=== PATIENT | male | born 1995 | race Caucasian/White ===

== ENCOUNTER 2021-02-01 20:03 | Emergency (ER) | payer OTHER, SELFPAY ==
[2021-02-01 20:04] VITALS: BP 132/88; PULSE 66; RESP 18; TEMP 36.8; O2SAT 100; BMI 26.6
--- NOTE | 2021-02-01 20:15 | EKG12_ITS ---
Test Reason : GENERAL ILLNESS Blood Pressure : / mmHG Vent. Rate : 064 BPM Atrial Rate : 064 BPM P-R Int : 164 ms QRS Dur : 092 ms QT Int : 414 ms P-R-T Axes : 031 020 023 degrees QTc Int : 427 ms Sinus rhythm with marked sinus arrhythmia Otherwise normal ECG Confirmed by CORRY TAMAYO, DEA ([id number]), editor house organ MIRIAM LAMB ([id number]) on 02/05/2021 9:36:07 AM Referred By: EDER Confirmed By:DEA WHEATLEY MD
--- NOTE | 2021-02-01 20:16 | ED.DCSUM_ITS ---
History of Present Illness Chief Complaint: General Illness Informant: Patient Onset: Today Current Severity: Mild Maximum Severity: Moderate Narrative: Patient presents after having an episode where he became very sweaty and lightheaded. Patient states he was moving furniture and began to get lightheaded. He tried to go outside to cool off but states he was stumbling and fell to his side. He became weak and short of breath. Father states when he was on the phone with his son approximate 45 months prior to arrival he is complaining about tingling in his legs and right arm. Patient states symptoms are now improving but is not quite back to baseline. Past Medical History - Allergies and Home Meds Allergies/Adverse Reactions: Allergies No Known Allergies Allergy (Verified 02/01/21 20:06) Primary Care Physician: NOT,DEFINED [NON-STAFF] - Past Medical History: None Smoking Status: Never smoker Review of Systems General: Denies: Chills, Fever Eyes: Denies: Visual changes - bilaterally ENT: Denies: Bilateral ear pain Cardiovascular: Denies: Chest pain, Palpitations Respiratory: Reports: Dyspnea Gastrointestinal: Denies: Abdominal pain, Nausea, Vomiting, Diarrhea Genitourinary: Denies: Dysuria Musculoskeletal: Denies: Swelling, Extremity Pain Skin: Denies: Rash Neurological: Reports: Parasthesia. Denies: Headache Hematologic: Denies: Easy bruising, Easy bleeding Allergy: Denies: Uticaria Physical Exam Vital Signs/Narrative: Vital Signs Temp Pulse Resp BP Pulse Ox 02/01/21 20:04 98.2 F 66 18 132/88 H 100 Inital Vital Signs reviewed: Yes General: Well nourished, Well developed Head: Normocephalic ENT: Moist mucous membranes Neck: Supple Cardiovascular: Regular rate, Regular rhythm Respiratory: No distress, CTA bilaterally Abdomen: Soft, Nontender Extremities: Nontender Skin: Normal color, No rash Neurological: Alert, Oriented x3, Normal Strength, Normal Sensation Psychological: Normal affect Diagnostic/Tx/Re-eval Chest X-Ray - ED: 1 View, Read by ED Physician, Normal, Heart, Lungs, Mediastinum 02/01/21 21:00 Chest 1 View (Portable) [RAD] Stat Laboratory Results 02/01/21 02/01/21 20:35 20:35 WBC 11.3 H RBC 5.28 Hgb 16.0 Hct 45.6 MCV 86.4 MCH 30.3 MCHC 35.1 RDW Std Deviation 38.8 RDW Coeff of Karlene 12.3 Plt Count 286 MPV 10.0 Immature Gran % (Auto) 0.300 Neut % (Auto) 78.2 H Lymph % (Auto) 15.9 L Catron % (Auto) 4.5 Eos % (Auto) 0.8 Baso % (Auto) 0.3 Absolute Neuts (auto) 8.9 H Absolute Lymphs (auto) 1.80 Nucleated RBC % 0 Sodium 136 Potassium 3.4 L Chloride 102 Carbon Dioxide 25.0 Anion Gap 9 BUN 16 Creatinine 1.26 Estim Creat Clear Calc 88.84 Est GFR (MDRD) Af Amer 89 Est GFR (MDRD) Non-Af 73 BUN/Creatinine Ratio 12.7 Glucose 92 Calcium 8.9 Troponin I < 0.015 - EKG Initial EKG Interpretation: Sinus Rhythm - Sinus at 64 with no acute ischemia. - Medical Decision Making Patient was given IV fluids. Blood work is unremarkable other than a slightly low potassium. Oral replacement was provided. Portable chest x-ray per my interpretation is unremarkable. EKG normal. At this time patient does feel improved. He will be discharged home with his father. ED Disposition - Plan for ED Patient: Disposition: Home or Assisted Living Diagnosis: Near syncope Instructions: ED Near-Fainting- Vagal Reaction Referrals: Niko Mena MD [STAFF PHYSICIAN] - As Needed
[2021-02-01] MEDS: 0.9% Normal Saline 1,000 ML 1000 ML IV (20:34)
[2021-02-01 20:40] LABS: Absolute Neutrophil Count 8.9 X10^3/uL (2.0-7.7); Basophil# 0.03 X10^3/uL; Basophil% 0.3 % (0-1); Eosinophil# 0.09 X10^3/uL; Eosinophils% 0.8 % (0-5); Hematocrit 45.6 % (40-54); Lymphocyte % 15.9 % (19-41); Mean Corp Hgb Conc 35.1 g/dL (32-36); Mean Corpuscular Hgb 30.3 pg (27.0-32.0); Mean Corpuscular Volume 86.4 fL (80-94); Monocyte# 0.51 X10^3/uL; Monocyte% 4.5 % (0-10); NRBC Flagged by Analyzer 0 % (0-5); Neutrophil # 8.85 X10^3/uL (2.7-7.7); Neutrophil % 78.2 % (47-70); Platelet Count 286 K/mm3 (150-450); RBC Distribution Width CV 12.3 % (11.6-14.6); RBC Distribution Width SD 38.8 fl (35.1-43.9); Red Blood Count 5.28 M/mm3 (4.6-6.2); White Blood Count 11.3 K/mm3 (4.4-11.0)
--- NOTE | 2021-02-01 21:00 | RAD_ITS ---
INDICATION: sob EXAMINATION/TECHNIQUE: X-RAY - XR Chest 1 View COMPARISON: None. FINDINGS: The lungs are clear. The cardiomediastinal silhouette is unremarkable. No pleural effusion or pneumothorax. The osseous structures are unremarkable. RAD/Chest 1 View (Portable) IMPRESSION: No acute radiographic abnormalities. Electronically Signed: Remi Pfeiffer MD at 21:43 EST Tel , Service support ,
[2021-02-01 21:22] LABS: Anion Gap 9 (5-15); BUN 16 mg/dL (7-18); BUN/Creat Ratio 12.7 RATIO (10-20); Calcium,Total 8.9 mg/dL (8.5-10.1); Chloride 102 mmol/L (98-107); Creatinine, Serum 1.26 mg/dL (0.70-1.30); EST Glomerular Filtration Rate 73 mL/min (>60); Est Glom Filt Rate - Afr Amer 89 mL/min (>60); Estimated Creatinine Clearance 88.84 ml/min; Glucose 92 mg/dL (74-106); Potassium 3.4 mmol/L (3.5-5.1); Sodium Level 136 mmol/L (136-145)
[2021-02-01 22:11] VITALS: BP 121/81; PULSE 69; RESP 20; O2SAT 100
[2021-02-01] MEDS: Potassium Chloride Oral Tablet 20 MEQ 40 MEQ PO (22:22)
[2021-02-01 22:57] VITALS: PULSE 76; RESP 14; O2SAT 99
== END 2021-02-01 22:58 | disposition home or self-care (01) ==
PROVIDERS: Emergency Provider Emergency Medicine
DX: R55 Syncope and collapse (principal)
CPT/HCPCS: 71045; 80048; 84484; 85025; 93005; 99285; J7030; A4216

== ENCOUNTER 2022-10-11 01:37 | Emergency (ER) | payer BC, SELFPAY ==
[2022-10-11 01:38] VITALS: BP 128/79; PULSE 67; RESP 18; TEMP 35.8; O2SAT 100; BMI 29.2
[2022-10-11 01:44] VITALS: TEMP 35.8; O2SAT 100
[2022-10-11] MEDS: oxyCODONE 5 MG Tablet 10 MG PO (02:01)
--- NOTE | 2022-10-11 02:26 | RAD_ITS ---
INDICATION: pain EXAMINATION/TECHNIQUE: X-RAY - XR Ribs Unilateral W/ PA Chest Min 3 Views COMPARISON: February 01, 2021 chest radiograph. FINDINGS: SOFT TISSUES: No soft tissue swelling or gas. BONES: Nondisplaced left anterolateral sixth rib fracture.. No displaced fracture. No aggressive osseous lesion. Mild S-shaped curvature of the thoracic spine. VISUALIZED LUNGS: Clear. No pneumothorax. RAD/Ribs Uni Min 3V w/PA Chest IMPRESSION: Nondisplaced left anterolateral sixth rib fracture. Electronically Signed: Genaro Harris MD at 3:32 EST ,
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
[2022-10-11 04:17] VITALS: BP 142/60; PULSE 81; RESP 16; O2SAT 96
== END 2022-10-11 04:18 | disposition home or self-care (01) ==
PROVIDERS: Emergency Provider Emergency Medicine; Visit Provider Emergency Medicine
DX: S22.32XA Fracture of one rib, left side, initial encounter for closed fracture (principal); V89.0XXA Person injured in unspecified motor-vehicle accident, nontraffic, initial encounter
CPT/HCPCS: 71101; 99283

== ENCOUNTER 2025-08-29 19:53 | Emergency (ER) | payer OTHER, SELFPAY ==
[2025-08-29 19:55] VITALS: BP 127/78; PULSE 71; RESP 15; TEMP 36.6; O2SAT 100
[2025-08-29 20:36] VITALS: BMI 31.3
--- NOTE | 2025-08-29 20:37 | RAD_ITS ---
PROCEDURE: RIGHT ANKLE MIN 3 VIEWS; RIGHT TIBIA AND FIBULA 2 VIEWS 08/29/2025 REASON FOR EXAM: PAIN, FOOT; PAIN INJURY TECHNIQUE: Procedure Code: RADWOO; EMMA Modality: DX Procedure: ANKLE MIN 3 VIEWS; TIBIA FIBULA 2 VIEWS Laterality: Right COMPARISON: None. FINDINGS: Acute highly comminuted and displaced fractures of the distal tibial and fibular shafts, which appears to have intra-articular extension of the distal tibia plafond and nondisplaced fracture involving the medial malleolus. No disruption of the ankle mortise. Prominent generalized soft tissue swelling about the ankle. RAD/Ankle min 3 Views IMPRESSION: Acute displaced highly comminuted fractures of the distal tibial and fibular sh afts, with intra-articular extension of the distal tibia and involvement of the medial malleolus. Reading Location: [id number]
--- NOTE | 2025-08-29 20:37 | RAD_ITS ---
PROCEDURE: RIGHT FOOT MIN 3 VIEWS 08/29/2025 REASON FOR EXAM: PAIN TECHNIQUE: Procedure Code: RADFO Modality: DX Procedure: FOOT MIN 3 VIEWS Laterality: Right COMPARISON: None. FINDINGS: Comminuted fractures of the distal tibia and fibula. No additional acute fracture or dislocation appreciated within the right foot. Alignment appears anatomic. Soft tissue swelling about the ankle. RAD/Foot min 3 Views IMPRESSION: Comminuted displaced fractures of the distal tibia and fibula. Reading Location: [id number]
--- NOTE | 2025-08-29 20:37 | RAD_ITS ---
PROCEDURE: RIGHT ANKLE MIN 3 VIEWS; RIGHT TIBIA AND FIBULA 2 VIEWS 08/29/2025 REASON FOR EXAM: PAIN, FOOT; PAIN INJURY TECHNIQUE: Procedure Code: RADANK; RADFRED Modality: DX Procedure: ANKLE MIN 3 VIEWS; TIBIA FIBULA 2 VIEWS Laterality: Right COMPARISON: None. FINDINGS: Acute highly comminuted and displaced fractures of the distal tibial and fibular shafts, which appears to have intra-articular extension of the distal tibia plafond and nondisplaced fracture involving the medial malleolus. No disruption of the ankle mortise. Prominent generalized soft tissue swelling about the ankle. RAD/Tibia & Fibula 2 Views IMPRESSION: Acute displaced highly comminuted fractures of the distal tibial and fibular sh afts, with intra-articular extension of the distal tibia and involvement of the medial malleolus. Reading Location: [id number]
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
[2025-08-29] MEDS: fentaNYL 100 MCG/2 ML Ampul 50 MCG IV (20:43)
[2025-08-29 22:00] VITALS: BP 120/80; PULSE 71; RESP 18; O2SAT 98
[2025-08-29 22:47] VITALS: BP 145/67; PULSE 67; RESP 18; TEMP 36.6; O2SAT 100
== END 2025-08-29 23:06 | disposition home or self-care (01) ==
PROVIDERS: Emergency Provider Student in an Organized Health Care Education/Training Program; PCP Family Medicine; Visit Provider Student in an Organized Health Care Education/Training Program
DX: S82.451A Displaced comminuted fracture of shaft of right fibula, initial encounter for closed fracture (principal); S82.251A Displaced comminuted fracture of shaft of right tibia, initial encounter for closed fracture; V86.55XA Driver of 3- or 4- wheeled all-terrain vehicle (ATV) injured in nontraffic accident, initial encounter
CPT/HCPCS: 29515; 73590; 73610; 73630; 96374; 96375; 96376; 99282; A4216

== ENCOUNTER 2025-08-31 10:14 | Day surgery (SDC) | payer OTHER, SELFPAY ==
[2025-08-31] VITALS (9 sets, daily range): BP systolic 92–121; BP diastolic 46–77; PULSE 60–89; RESP 12–18; TEMP 36.2–36.6; O2SAT 99–100; BMI 31.0
[2025-08-31] MEDS: Lactated Ringers 1,000 ML 15 ML IV ×2 (11:10→14:03)
--- NOTE | 2025-08-31 11:30 | RAD_ITS ---
PROCEDURE: ANKLE 2 VIEWS 08/31/2025 REASON FOR EXAM: ANKLE PILON FRACTURE, MULTIPLANE EXTERNAL FIXATION SYSTEM TECHNIQUE: Procedure Code: RADANK2 Modality: DX Procedure: ANKLE 2 VIEWS Laterality: Not indicated on the provided images COMPARISON: Radiographs dated 08/29/2025 and 08/31/25.. FINDINGS: Total fluoroscopic images: 7 Total fluoroscopy time: 25.4 seconds Total exposure: 1.48 mGy Orthopedic hardware compatible with an external fixator is noted within the proximal tibia and calcaneal tuberosity. Once again noted are moderately displaced spiral fractures through the distal shafts of the tibia and fibula, as well as nondisplaced medial and posterior malleolar fractures. RAD/Ankle 2 Views IMPRESSION: As above. Reading Location: [id number]
--- NOTE | 2025-08-31 11:37 | PCM.PRE.AN2 ---
ASA Classification* ASA Classification ASA Classification: 2 Assessment & Plan Anesthesia* Anesthesia Assessment Anesthesia Assessment: Discussed sedation and/or anesthesia options, risks, benefits, and alternatives with patient/parents/legal guardian/POA. Questions invited. The patient/parents/legal guardian/POA seems to understand and agrees to proceed with anesthesia plan. Reviewed the physical assessment, medical history, allergy history and patient home medications list prior to surgery/procedure/anesthetic and documented any changes. Performed airway and anesthesia risk assessments. Anesthesia Type Anesthesia Type: General and Block (Patient is consented for preop pain block.) History Source History Obtained from:: Patient and Chart Anesthesia Focused Assessment* Temperature: 98 F Pulse Rate: 86 Blood Pressure: 121/77 Respiratory Rate: 16 Pulse Ox: 100 Oxygen Delivery Method: Room Air Airway Assessment Mouth opens: >3 cm Mallampati Score: IV Teeth Condition: Intact Neck Range of motion (ROM): Limited ROM (Slight Decrease) Labs Anesthesia Preop lab: CBC WBC, (4.4-11.0) 11.3 K/mm3 H 02/01/21, 20:35 RBC, (4.6-6.2) 5.28 M/mm3 02/01/21, 20:35 Hgb, (13.0-16.5) 16.0 g/dL 02/01/21, 20:35 Hct, (40-54) 45.6 % 02/01/21, 20:35 Plt Count, (150-450) 286 K/mm3 02/01/21, 20:35 CHEMISTRY Potassium, (3.5-5.1) 3.4 mmol/L L 02/01/21, 20:35 Sodium, (136-145) 136 mmol/L 02/01/21, 20:35 BUN, (7-18) 16 mg/dL 02/01/21, 20:35 Creatinine, (0.70-1.30) 1.26 mg/dL 02/01/21, 20:35 Glucose, (74-106) 92 mg/dL 02/01/21, 20:35 COAG Pre-Assessment Diagnosis/Proposed Procedure Planned Operative Procedure(s): EXTERNAL FIXATOR Anesthesia History 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 When Was Last Pacemaker Check QUESTION #4 FULL TEXT: You/Your Family Experience fever (hyperthermia) with Anesthesia Last Oral Intake Last Oral intake: Last Oral Intake NPO since 23:45 08/31/25 10:46 Meds taken in AM with sips of Yes 08/31/25 10:46 water? Meds patient instructed to vicodin 08/31/25 10:46 take am of surgery PONV PONV - software development test engineer: PONV - software development test engineer Female No 08/30/25 11:53 HX of Motion Sickness No 08/30/25 11:53 HX of N/V After Surgery No 08/30/25 11:53 Non-Smoker No 08/30/25 11:53 Duration of Surgery greater No 08/30/25 11:53 than 60 minutes Number of Risk Factors PONV Score Height & Weight Height & Weight: Anesthesia: Height & Weight Height 5 ft 8 in 08/31/25 10:46 Weight: 92.533 kg 08/31/25 10:46 Body Mass Index (BMI) 31.0 08/31/25 10:46 Respiratory Assessment Respiratory Assessment - software development test engineer: Respiratory Tract Infection Hx - software development test engineer Hx Respiratory Tract Infection No 08/30/25 11:53 STOP Sleep Apnea STOP Sleep Apnea - software development test engineer: STOP Sleep Apnea - software development test engineer Hx Hypertension No 08/30/25 11:53 Hx Sleep Apnea No 08/30/25 11:53 CPAP BIPAP Do you snore loudly (louder No 08/30/25 11:53 than talking or can be heard Do you often feel tired/ No 08/30/25 11:53 fatigued/ sleepy during daytime? Has anyone observed you stop No 08/30/25 11:53 breathing during sleep? STOP Results Negative 08/30/25 11:53 QUESTION #5 FULL TEXT : Do you snore loudly (louder than talking or can be heard through closed doors)? 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 Specify any problems Hx of Preganancy in last 3 N/A 08/30/25 11:53 Months Nurse Filling Out Transfusion NBUCHER 08/30/25 11:53 & Questions: Date: 08/30/25 08/30/25 11:53 Time: 11:54 08/30/25 11:53 Patient unable to answer at this time (ie. confused, unrespo /Reproduction History /Reproductive History - software development test engineer: /Reproductive Hx- software development test engineer Hx Now No 08/30/25 11:53 Gestational Age (in weeks): EDC: Hx Hx Para Hx Section SAB No 08/30/25 11:53 Active Medications Active Medications: Current Medications Generic Name Dose Route Start Last Admin Trade Name Freq PRN Reason Stop Dose Admin Lactated Ringer's 1,000 mls @ 15 mls/hr 08/31/25 10:30 08/31/25 11:10 IV 15 mls/hr .Q48H VICKIE Administration PFSH Medical History Wears glasses Depression Former smoker No acute medical problems Home Medications ?Medication ?Instructions ?Recorded ?Last Taken ?Type hydrocodone-acetaminophen 5-325mg 1 tab PO Q6H PRN PRN Pain 4 days 08/29/25 08/31/25 06:00 Rx 5mg-325mg #12 TABLETS escitalopram oxalate 20 mg tablet 20 mg PO DAILY 08/30/25 08/30/25 History Allergy/AdvReac Type Severity Reaction Status Date / Time No Known Allergies Allergy Verified 08/31/25 10:45 Surgical History History of vasectomy Social History Smoking Status: Former smoker Review of Systems (Anesthesia) ROS Narrative System reviewed and no additional complaints, except as documented.
[2025-08-31] MEDS: Cefazolin 2 GM in 0.9% Normal Saline (100mL Bag) 100 ML IV (12:17)
[2025-08-31] MEDS: fentaNYL 100 MCG/2 ML Ampul IV (12:30)
[2025-08-31] MEDS: Midazolam 2 MG/2 ML Syringe IV (12:30)
[2025-08-31] MEDS: Cefazolin 1 GM/5 ML Vial 2 GM IV (12:50)
[2025-08-31] MEDS: Lidocaine 1% (5 ml sdv) 5 ML Vial IV (12:50)
--- NOTE | 2025-08-31 13:37 | RAD_ITS ---
PROCEDURE: TIBIA FIBULA 2 VIEWS 08/31/2025 REASON FOR EXAM: FRX TECHNIQUE: Procedure Code: RADTF Modality: DX Procedure: TIBIA FIBULA 2 VIEWS Laterality: COMPARISON: 08/31/2025 right lower fluoroscopic spot images. 08/29/2025 right ankle radiographs. FINDINGS: Comminuted oblique complete fracture through the distal tibial metadiaphysis exhibits mild foreshortening, with as much as 8 mm lateral displacement of the main distal fragment, and with as much as 7 mm anterior displacement. The alignment appears grossly similar to the fluoroscopic spot images from earlier today, and significantly reduced compared to the 08/29/2025 radiographs. There is little significant angulation across the fracture. Medial malleolar fracture with articular surface involvement appears minimally displaced and similar to prior images. Oblique fracture of the distal shaft of the fibula with foreshortening and as much as 6 mm lateral and 13 mm posterior displacement of the distal fragment, similar to disease fluoroscopic images but reduced since 08/29/2025 radiographs. Mild varus angulation of the fracture apex. There is a posterior malleolar fracture with 1-2 mm inferior cortical step-off of the fragment along the articular surface, in agreement with today's fluoroscopic images, but not well visualized on 08/29/2025 radiographs. Valgus angulation of the talus in relation to the tibial plafond, similar to today's fluoroscopic images. External fixators are in place. RAD/Tibia & Fibula 2 Views IMPRESSION: Posterior malleolar fracture with 1-2 mm articular surface cortical step-off, a lso seen on fluoroscopic images. Comminuted oblique fracture of the distal tibial metadiaphysis with displacemen t and foreshortening, similar to today's fluoroscopic spot images. Medial malleolar fracture with articular surface involvement appears minimally displaced, similar to prior images. Foreshortened and displaced oblique distal shaft fibular fracture with mild irina us angulation of the apex. Reading Location: [facility]
--- NOTE | 2025-08-31 13:43 | PCM.OPRPT ---
Operative Report (Standard) Operative Information Date of Procedure: 08/31/25 Pre-Operative Diagnosis: Right closed pilon fracture and distal fibula fracture Post-Operative Diagnosis: Right closed pilon fracture and distal fibula fracture Surgery/Procedure Performed: Right lower extremity application multiplanar external fixator real estate transaction coordinator: Yes General Warehouse Associate: Dionne Ortiz Tasks completed by children's nursery assistant: Other (Fracture reduction and pin tightening) Additional event sales assistant?: No Type of Anesthesia: General RN Documented Start/Stop Times: Operation Date: 08/31/25 12:30 Case Time Into Pre-Op 08/31/25 10:27 Out of Pre-Op 08/31/25 12:27 Anesthesia Start 08/31/25 12:45 Into Room 08/31/25 12:45 Procedure Start 08/31/25 13:07 Procedure End 08/31/25 13:34 Anesthesia End 08/31/25 13:38 Out of Room 08/31/25 13:38 Into Recovery 08/31/25 13:43 Procedure Start Time: 13:07 Procedure Stop Time: 13:34 Select all DRAINS/GRAFTS/IMPLANTS that apply: Prosthetic device Prosthetic device details: Lasha external fixator Special Medications: 2 g Ancef Estimated Blood Loss: 10 mL Fluids Replaced: Not 100 mL crystalloid Specimen collected: No Description of surgery: On date of procedure patient was seen in the preoperative area. Block was performed by anesthesia. Patient was brought back to the operating room he was transferred to the table in the supine position. Anesthesia team control the C-spine airway and remained controlled throughout the remainder procedure. After patient was appropriate Neste ties bump was placed underneath the right hip right lower extremity is elevated on blankets. Tourniquet was placed in the right upper thigh. Splint was removed and skin was examined. Patient had swollen shiny skin with no skin wrinkles. Patient's leg was clipped. Right lower extremity was prepped in a sterile fashion while the surgeon scrubbed. Upon range in the room the right lower extremity was draped in a standard orthopedic fashion. Timeout was called and agreed upon the side, the site, the procedure to be performed, patient's identity and antibiotics given. Live x-ray was brought into the field we were able to identify the most proximal portion of the fracture. Wound to be well above the future planned plate. We then marked our spot for the first pin incision which would be the most distal pin. Skin was incised hemostat was used to spread skin down to bone and soft tissue. First pin was drilled and a 4.0 mm pin was placed in the tibia. 1 more pin was placed proximally using the pin forming yardage control operator guide after nicking the skin and spreading with hemostat. Once this was done attention was directed towards the calcaneus. Calcaneal pin was passed medial to lateral. We first used the live x-ray to localize the posterior inferior quadrant of the calcaneus. Once we are happy with this we passed the pin parallel to the bottom of the foot medial to lateral. Once the skin tented laterally James blade was used to jac the skin and the pin was passed the remainder of the way through until the threads were in the calcaneus. Once this was completed we then used live x-ray to localize the first metatarsal midportion of the shaft. A 3.0 mm pin was placed in the first metatarsal. After all the pins were placed we carefully pulled traction to reduce the fracture. We tightened the lateral and medial bar making sure that there was at least 2 mm between all skin and all bars. Once this was completed these were tightened up live x-rays used to verify that the fracture was distracted and adequately provisionally reduced. In the AP and lateral plane which is acceptable. We then tightened these down with final tightening using the wrench. The final bar connecting the first metatarsal to the main construct was then used to help keep the foot in a neutral position and this was tightened down. Final x-rays were performed showing adequate reduction and alignment of the ankle had been maintained. Skin was cleaned pin sites were cleaned and Xeroform was wrapped around each pin site. Gauze was wrapped around each pin site. The leg was loosely wrapped with a sterile dressing. Sterile Otilio bandage was placed. Patient was waken anesthesia and transferred to PACU for recovery in stable condition after removing him from the bed. Postop plan: Patient will return to the office weekly. They have been instructed on daily pin site care which they will begin in 48 hours. Patient has oxycodone for pain. They will follow-up in the office in 1 week. Will monitor the skin and return to the OR for definitive fixation. We are also going to obtain a CT scan out of the Ex-Fix is in place. Surgical Findings: Stable reduction of fracture. Patient had significant soft tissue swelling with no appreciable skin wrinkles upon removal of the splint. Complications Complications: No Admit VTE Documentation VTE Present on Admission: No VTE Mechan Device Prophylaxis: SCD's and Thigh High JACQUELIN Hose VTE Pharm Prophylaxis ordered?: Yes
--- NOTE | 2025-08-31 13:47 | PCM.POST.ANE ---
Anesthesia: Postop Eval I Current Vital Signs Temperature: 97.1 F Pulse Rate: 61 Blood Pressure: 93/46 Respiratory Rate: 12 Pulse Ox: 100 Oxygen Delivery Method: Nasal Cannula Oxygen Flow Rate (L/min): 2 Assessment Airway patent: Yes Spontaneous unlabored respirations: Yes Mental status: Asleep nausea: No Vomiting: No Anesthesia Complication: No Fluid Hydration Crystalloid volume administer (ml): 900 Total IV fluid infused: 900 Progress Note Anesthesia document: Postop Eval 1 completed: Yes
--- NOTE | 2025-08-31 14:02 | SUR.PHASEI ---
ORAL AIRWAY PULLED OUT BY PATIENT AT 1400.
--- NOTE | 2025-08-31 16:42 | POSTOPAN2_ITS ---
Anesthesia Postop Eval I Sum Postop Eval Completion status Anesthesia document: Postop Eval 1 completed: Yes Anesthesia Postop Eval I Summary Anesthesia Postop Eval I Summary: Anesthesia Postop Eval I: Assessment Summary Airway patent Yes 08/31/25 13:48 PULP [email or web address] Spontaneous unlabored Yes 08/31/25 13:48 PULP [email or web address] respirations Mental status Asleep 08/31/25 13:48 PULP [email or web address].SHOF nausea No 08/31/25 13:48 PULP OPERATOR.SHOF Vomiting No 08/31/25 13:48 PULP [email or web address].SHOF Anesthesia Postop Eval I: Fluid Summary Crystalloid volume administer 900 08/31/25 13:48 PULP [email or web address].SHOF (ml) Colloids volume administered ( ml) Blood Product volume administered (ml) Total IV fluid infused 900 08/31/25 13:48 PULP [email or web address].SHOF Anesthesia Postop Eval I: Summary Notes Anesthesia Complication No 08/31/25 13:48 PULP [email or web address].SHOF Anesthesia Complication Comment: Post-operative progress note Anesthesia: Postop Eval II Evaluation Mental status: Awake and Calm Pain Level: 2 nausea: No Vomiting: No Complications Anesthesia Complication: No
--- NOTE | 2025-08-31 16:42 | PCM.POSTANE2 ---
Anesthesia Postop Eval I Sum Postop Eval Completion status Anesthesia document: Postop Eval 1 completed: Yes Anesthesia Postop Eval I Summary Anesthesia Postop Eval I Summary: Anesthesia Postop Eval I: Assessment Summary Airway patent Yes 08/31/25 13:48 BEER [email or web address] Spontaneous unlabored Yes 08/31/25 13:48 BEER MERCHANT.SHOF respirations Mental status Asleep 08/31/25 13:48 BEER MERCHANT.SHOF nausea No 08/31/25 13:48 BEER MERCHANT.SHOF Vomiting No 08/31/25 13:48 BEER MERCHANT.SHOF Anesthesia Postop Eval I: Fluid Summary Crystalloid volume administer 900 08/31/25 13:48 BEER MERCHANT.SHOF (ml) Colloids volume administered ( ml) Blood Product volume administered (ml) Total IV fluid infused 900 08/31/25 13:48 BEER MERCHANT.SHOF Anesthesia Postop Eval I: Summary Notes Anesthesia Complication No 08/31/25 13:48 BEER MERCHANT.SHOF Anesthesia Complication Comment: Post-operative progress note Anesthesia: Postop Eval II Evaluation Mental status: Awake and Calm Pain Level: 2 nausea: No Vomiting: No Complications Anesthesia Complication: No
== END 2025-08-31 15:25 | disposition home or self-care (01) ==
LOC: SDC 10:14 → AC 10:15
PROVIDERS: PCP Family Medicine; Referring Provider Specialist; Visit Provider Specialist
PROC: (CPT 20692; principal; 2025-08-31 12:10)
DX: S82.871A Displaced pilon fracture of right tibia, initial encounter for closed fracture (principal); S82.831A Other fracture of upper and lower end of right fibula, initial encounter for closed fracture; V86.05XA Driver of 3- or 4- wheeled all-terrain vehicle (ATV) injured in traffic accident, initial encounter; F32.A Depression, unspecified; Z79.899 Other long term (current) drug therapy; Z87.891 Personal history of nicotine dependence
CPT/HCPCS: 20692; 27756; 64450; 64447; 73590; 73600; 76000; C1713; J2405

== ENCOUNTER → 2025-09-10 | Outpatient (CLI) | payer OTHER, SELFPAY ==
--- NOTE | 2025-09-10 18:16 | CT_ITS ---
PROCEDURE: EXTREMITY LOWER WITHOUT CONTRA 09/10/2025 REASON FOR EXAM: RIGHT ANKLE- DISPLACED PILON FX OF RIGHT TIBIA TECHNIQUE: Procedure Code: CTELWO Modality: CT Procedure: EXTREMITY LOWER WITHOUT CONTRA Coronal and Sagittal reconstruction series were provided. CONTRAST: None One or more dose reduction techniques were used (e.g., Automated exposure control, adjustment of the mA and/or kV according to patient size, use of iterative reconstruction technique). RADIATION DOSE SUMMARY: DLP: 539 mGycm COMPARISON: None FINDINGS: There are external fixator pins noted in the proximal tibia, in the calcaneus, and through the 1st metatarsal. There is a comminuted distal tibia fracture with an oblique component in the distal diaphysis, with slight anterior angulation. There is a vertical fracture component of the distal tibia at the posterior articular surface with near anatomic alignment. There is a vertical fracture component of the distal tibia through the medial malleolus with near anatomic alignment. The ankle mortise is not significantly widened. There is a comminuted fracture of the distal fibular diaphysis with 1.1 cm overriding. The tarsal bones and metatarsals appear intact. The distal Achilles shadow and plantar fascia origins appear intact. There is a visible effusion of the posterior subtalar joint. There is no visible hematoma. There is no visible atherosclerosis. CT/Extremity Lower without Contra IMPRESSION: There are external fixator pins noted in the proximal tibia, in the calcaneus, and through the 1st metatarsal. There is a comminuted distal tibia fracture with an oblique component in the di stal diaphysis, with slight anterior angulation. There is a vertical fracture component of the distal tibia at the posterior art icular surface with near anatomic alignment. There is a vertical fracture component of the distal tibia through the medial m alleolus with near anatomic alignment. The ankle mortise is not significantly widened. There is a comminuted fracture of the distal fibular diaphysis with 1.1 cm over riding. Reading Location: [facility]
--- OUTSIDE RECORDS SUMMARY | 2025-09-10 18:17 | XMS RPT_ITS | CCD ---
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 last year or 1 fall with injury or currently using an Ambulatory Assistive Device (Walker, Cane, Wheelchair, Crutches, etc.)? No PATIENT GENDER DATA: Assigned male at PATIENT RELEVANT IMPLANT DATA REVIEWED: Not Applicable PATIENT PRESENTS WITH AN IMPLANTABLE OR ATTACHED PARTNER MANAGER: No RADIOLOGY DEPARTMENT: General X-ray: Exam(s) Completed: Rib X-Ray: Left PERIPHERAL IV DATA: Not applicable SIGNED BY: Veronica De, RT(R) April 18, 2025 11:00 [facility]05-28-2025 NoteHNO ID: [id number] Author: MIGUELANGEL CORTES MD Service: ? Author Type: Physician Type: Progress Notes Filed: 04/18/2025 11:34 Note Text: [facility] Subjective Ursula Cortez is a 29 year old male. Patient presents with: Rib Injury: left rib pain x this am, lifted something wrong, previous rib fracture x 2 years ago Left rib pain: Duration: lifted a bucket at work today and felt a pop. Location: left anterior lateral chest below the breast level Character: initial pop and tingling, now sharp trying to lift or push on the chest. Radiation: No. Aggravating: lifting and pulling, some discomfort with deep breaths Relieving: Pain relievers: Associated: Hx of broken ribs on the left side about 2 years ago Pertinent negatives: Denies bruising, swelling, numbness, weakness, shortness of breath, dizziness, significant cough The history is provided by the patient. Review of Systems Objective BP 110/72 Pulse 68 Temp 36.4 ?C (97.6 ?F) Resp 16 Wt 91 kg (200 lb 9.9 oz) SpO2 99% Physical Exam Constitutional: General: He is not in acute distress (cautions movement/transitions). Appearance: Normal appearance. He is not toxic-appearing. HENT: Mouth/Throat: Mouth: Mucous membranes are moist. Eyes: Extraocular Movements: Extraocular movements intact. Conjunctiva/sclera: Conjunctivae normal. Pupils: Pupils are equal, round, and reactive to light. Cardiovascular: Rate and Rhythm: Normal rate and regular rhythm. Heart sounds: No murmur heard. Pulmonary: Effort: Pulmonary effort is normal. No respiratory distress. Breath sounds: No stridor. No wheezing, rhonchi or rales. Chest: Comments: Chest wall tenderness left ~8-10th ribs in the anterior axillary line. Discomfort with palpation of the left lower sternal border to the bony ribs. Anterior pain with lateral and posterior pressure applied to the left mid to lower ribs also. Musculoskeletal: Cervical back: Neck supple. No rigidity or tenderness. Lymphadenopathy: Cervical: No cervical adenopathy. Neurological: Mental Status: He is alert. {ASSESSMENT/PLAN: 1. Rib sprain, initial encounter - ICD9: 848.3, ICD10: S23.41XA (primary diagnosis) 2. Rib pain on left side - ICD9: 786.50, ICD10: R07.81 - XR RIBS/CHEST 3V AP RIB/OBLS/CXR LEFT - No radiographic evidence of acute displaced left rib fracture. Rib/brain at the left lower costochondral junction. Treat with rest and as needed OTC analgesia. Advance activity as tolerated. Follow-up with occupational health, orthopedics, or PCP if not improving. FROI form completed and sent for scanning. Miguelangel Cortes MD Differential Diagnoses - Costochondral junction sprain is more likely for the following reason(s): suggested by HANDP - Rib fracture is less likely for the following reason(s): no evidence on imaging [facility] History of Present illness Narrative* Miguelangel Cortes MD - 04/18/2025 10:47 AM EDT Images from the original note were not included. [facility] Subjective Ursula Cortez is a 29 year old male. Patient presents with: Rib Injury: left rib pain x this am, lifted something wrong, previous rib fracture x 2 years ago Left rib pain: Duration: lifted a bucket at work today and felt a pop. Location: left anterior lateral chest below the breast level Character: initial pop and tingling, now sharp trying to lift or push on the chest. Radiation: No. Aggravating: lifting and pulling, some discomfort with deep breaths Relieving: Pain relievers: Associated: Hx of broken ribs on the left side about 2 years ago Pertinent negatives: Denies bruising, swelling, numbness, weakness, shortness of breath, dizziness,significant cough The history is provided by the patient. Review of Systems Objective BP 110/72 Pulse 68 Temp 36.4 C (97.6 F) Resp 16 Wt 91 kg (200 lb 9.9 oz) SpO2 99% Physical Exam Constitutional: General: He is not in acute distress (cautions movement/transitions). Appearance: Normal appearance. He is not toxic-appearing. HENT: Mouth/Throat: Mouth: Mucous membranes are moist. Eyes: Extraocular Movements: Extraocular movements intact. Conjunctiva/sclera: Conjunctivae normal. Pupils: Pupils are equal, round, and reactive to light. Cardiovascular: Rate and Rhythm: Normal rate and regular rhythm. Heart sounds: No murmur heard. Pulmonary: Effort: Pulmonary effort is normal. No respiratory distress. Breath sounds: No stridor. No wheezing, rhonchi or rales. Chest: Comments: Chest wall tenderness left ~8-10th ribs in the anterior axillary line. Discomfort with palpation of the left lower sternal border to the bony ribs. Anterior pain with lateral and posterior pressure applied to the left mid to lower ribs also. Musculoskeletal: Cervical back: Neck supple. No rigidity or tenderness. Lymphadenopathy: Cervical: No cervical adenopathy. Neurological: Mental Status: He is alert. {ASSESSMENT/PLAN: 1. Rib sprain, initial encounter - ICD9: 848.3, ICD10: S23.41XA (primary diagnosis) 2. Rib pain on left side - ICD9: 786.50, ICD10: R07.81 - XR RIBS/CHEST 3V AP RIB/OBLS/CXR LEFT - No radiographic evidence of acute displaced left rib fracture. Rib/brain at the left lower costochondral junction. Treat with rest and as needed OTC analgesia. Advance activity as tolerated. Follow-up with occupational health, orthopedics, or PCP if not improving. FROI form completed and sent for scanning. Miguelangel Cortes MD Differential Diagnoses - Costochondral junction sprain is more likely for the following reason(s): suggested by H&P - Rib fracture is less likely for the following reason(s): no evidence on imaging Procedures [facility] noteNo assessment information availableWLouis Stokes [facility] Work Phone: Evaluation note* Diagnosis Rib sprain, initial encounter- Primary Rib pain on left side Chest pain, unspecified Rib pain on left side Chest pain, unspecified documented in this encounter [facility] note* Diagnosis Rib pain on left side Chest pain, unspecified [facility] Additional Instructions Please use the incentive spirometer once or twice every hour while you are awake to ensure you are taking deep breaths and prevent a pneumonia. Follow-up with your family doctor for repeat evaluation and return to the ER should you have any further concernsWLouis Stokes [facility] Work Phone: Hospital Discharge instructionsAdditional Instructions Follow-up with the orthopedic doctor below as soon as possible. If you develop any numbness, tingling, increased pain or noticed color changes to her foot you need to return to the emergency department immediately. Your evaluation in the Emergency Department did not reveal any acute reason for admission. However, I want to emphasize that you may be early in the course of a disease process or illness even if it is not present. For this reason you should follow-up within 24 hours for reevaluation with either your primary care physician or if necessary back here in the Emergency Department. You should return to the Emergency Department immediately if your symptoms worsen or new symptoms develop.[facility] Work Phone: Reason for referral (narrative)No reason for referral information availableWLouis Stokes [facility] Work Phone: Rerxwb for visit Narrative* Diagnostic Procedure Only (Urgent) - Closed Specialty Diagnoses / Procedures Referred By Raciel smith Referred To Contact XR IMAGING Diagnoses Rib pain on left side Procedures XR RIBS/CHEST 3V AP RIB/OBLS/CXR LEFT RADEX RIBS UNI W/POSTEROANT CH MINIMUM 3 VIEWS Miguelangel Cortes MD [address] [place] [address] Phone: tel: fax: [place] [address] Referral ID Status Reason Start Date Expiration Date V isits Requested Visits Authorized [id number] Closed Auto-Generate d Referral 04/18/2025 05/18/2026 1 1 [facility] Summary Purpose Family History No Family History Records FoundNo Family History Records FoundNo Family History Records Found Advance Directives No Advanced Directives Records Found Advance Directive Response Recorded Date/ Time Living Will No October 11 022 1:44am Power of Spring Winder No October 11, 2022 1:44am Advance Directive Response Recorded Date/ Time Do you have a Healthcare Power of Spring Winder? No August 29, 2025 8:35pm Chief Complaint and Reason for Visit Chief Complaint FOURWHEELER CRASH Chief Complaint Admit Date lower ext August 29, 2025 7: 53pm Additional Source Comments (unrecognized sect ion and content) No Status Records FoundNo Status Records FoundNo Status Records Found INFORMATION SOURCE (unrecogn ized section and content) DATE CREATED AUTHOR 05/12/2018 [facility] DATE CREATED AUTHOR AUTHOR'S ORGANIZ ATION 04/21/2025 [facility] DATE CREATED AUTHOR AUTHOR'S ORGANIZ ATION 09/09/2025 [facility] Goals (unrecognized section and content) Goals may be documented in a n alternate sectionGoals may be documented in an alternate section Source Comments (unrecognize d section and content) In the event this informatio n is protected by the Federal Confidentiality of Alcohol and Drug Abuse Patient Records regulations: The Federal rules restrict any use of the information to criminally investigate or prosecute any alcohol or drug abuse patient.[facility] the event this information is protected by the Federal Confidentiality of Alcohol and Drug Abuse Patient Records regulations: The Federal rules restrict any use of the information to criminally investigate or prosecute any alcohol or drug abuse patient.[facility] Reason for Visit (unrecogniz ed section and content) Reason Comments Rib Injury left rib pain x this am, lifted something wrong, previous rib fracture x 2 years ago Specialty Diagnoses / Procedures Referred By Contac t Referred To Contact Family Medicine / [facility] Diagnoses Left rib pain Procedures REFERRAL TO [facility] EST SAME DAY Self Miguelangel Cortes MD [address] [facility] [place] [address] Phone: tel: fax: Referral ID Status Reason Start Date Expiration Date V isits Requested Visits Authorized [id number] Pending Review 04/18/2025 06/17/2025 1 1 Care Teams (unrecognized sec tion and content) Casing Mixer Relationship Specialty Start Date End Date Itzel Fletcher MD [address] [address] PCP - General Family Medicine 04/18/25 Casing Mixer Relationship Specialty Start Date End Date Itzel Fletcher MD [address] [place], [place] [id number] PCP - General Family Medicine 04/18/25 Team Status: Active Member Role/Relationship Status Dates Dr. Bruna Morgan MD Primary care physician Active Team Status: Inactive Member Role/Relationship Status Dates Dr. Farhana German MD Emergency Department Physician Ac tive Start: August 29, 2025 End: August 29, 2025 Dr. Bruna Morgan MD Primary care physician Active Start: August 29, 2025 End: August 29, 2025 FOR RECORDS PERTAINING TO PATIENTS WHO ARE OR HAVE BEEN ENROLLED IN A CHEMICAL DEPENDENCY/SUBSTANCEABUSE PROGRAM, SOME INFORMATION MAY BE OMITTED. This clinical summary was aggregated from multiple sources. Caution should be exercised in using it in the provision of clinical care. This summary normalizes information from multiple sources, and as a consequence, information in this document may materially change the coding, format and clinical context of patient data. In addition, data may be omitted in some cases. CLINICAL DECISIONS SHOULD BE BASED ON THE PRIMARY CLINICAL RECORDS. [employer] provides no warranty or guarantee of the accuracy or completeness of information in this document.
== END | disposition home or self-care (01) ==
PROVIDERS: PCP Family Medicine
DX: S82.871A Displaced pilon fracture of right tibia, initial encounter for closed fracture (principal)
CPT/HCPCS: 73700

== ENCOUNTER 2025-09-17 11:43 | Day surgery (SDC) | payer OTHER, SELFPAY ==
[2025-09-17] VITALS (15 sets, daily range): BP systolic 112–150; BP diastolic 77–106; PULSE 55–80; RESP 14–18; TEMP 36–36.4; O2SAT 96–100; BMI 31.1
[2025-09-17] MEDS: Lactated Ringers 1,000 ML 15 ML IV (12:21)
[2025-09-17] MEDS: Midazolam 2 MG/2 ML Syringe IV (13:15)
--- NOTE | 2025-09-17 13:33 | PRE.ANES_ITS ---
ASA Classification* ASA Classification ASA Classification: 2 Assessment & Plan Anesthesia* Anesthesia Assessment Anesthesia Assessment: Discussed sedation and/or anesthesia options, risks, benefits, and alternatives with patient/parents/legal guardian/POA. Questions invited. The patient/parents/legal guardian/POA seems to understand and agrees to proceed with anesthesia plan. Reviewed the physical assessment, medical history, allergy history and patient home medications list prior to surgery/procedure/anesthetic and documented any changes. Performed airway and anesthesia risk assessments. Anesthesia Type Anesthesia Type: General and Block Anesthesia Focused Assessment* Temperature: 97.6 F Pulse Rate: 60 Blood Pressure: 112/77 Respiratory Rate: 16 Pulse Ox: 100 Oxygen Delivery Method: Room Air Airway Assessment Mouth opens: 1 cm Mallampati Score: I Teeth Condition: Intact Neck Range of motion (ROM): Full ROM Labs Anesthesia Preop lab: CBC WBC, (4.4-11.0) 11.3 K/mm3 H 02/01/21, 20:35 RBC, (4.6-6.2) 5.28 M/mm3 02/01/21, 20:35 Hgb, (13.0-16.5) 16.0 g/dL 02/01/21, 20:35 Hct, (40-54) 45.6 % 02/01/21, 20:35 Plt Count, (150-450) 286 K/mm3 02/01/21, 20:35 CHEMISTRY Potassium, (3.5-5.1) 3.4 mmol/L L 02/01/21, 20:35 Sodium, (136-145) 136 mmol/L 02/01/21, 20:35 BUN, (7-18) 16 mg/dL 02/01/21, 20:35 Creatinine, (0.70-1.30) 1.26 mg/dL 02/01/21, 20:35 Glucose, (74-106) 92 mg/dL 02/01/21, 20:35 COAG Pre-Assessment Diagnosis/Proposed Procedure Planned Operative Procedure(s): ORIF RIGHT PILON FRACTURE,REMOVAL EXTERNAL FIXATOR Anesthesia History 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 When Was Last Pacemaker Check QUESTION #4 FULL TEXT: You/Your Family Experience fever (hyperthermia) with Anesthesia Any additional information?: No Last Oral Intake Last Oral intake: Last Oral Intake NPO since 23:00 09/17/25 12:09 Meds taken in AM with sips of Yes 09/17/25 12:09 water? Meds patient instructed to Lexapro, Tylenol, asa 09/17/25 12:09 take am of surgery Any additional information?: No PONV PONV - bottom liquor attendant: PONV - bottom liquor attendant Female No 09/14/25 14:11 HX of Motion Sickness No 09/14/25 14:11 HX of N/V After Surgery No 09/14/25 14:11 Non-Smoker Yes 09/14/25 14:11 Duration of Surgery greater Yes 09/14/25 14:11 than 60 minutes Number of Risk Factors 2 09/14/25 14:11 PONV Score Moderate Risk 09/14/25 14:11 Any additional information?: No Height & Weight Height & Weight: Anesthesia: Height & Weight Height 5 ft 8 in 09/17/25 12:09 Weight: 92.87 kg 09/17/25 12:09 Body Mass Index (BMI) 31.1 09/17/25 12:09 Respiratory Assessment Respiratory Assessment - bottom liquor attendant: Respiratory Tract Infection Hx - bottom liquor attendant Hx Respiratory Tract Infection No 09/14/25 14:11 Any additional information?: No STOP Sleep Apnea STOP Sleep Apnea - bottom liquor attendant: STOP Sleep Apnea - bottom liquor attendant Hx Hypertension No 09/14/25 14:11 Hx Sleep Apnea No 09/14/25 14:11 CPAP BIPAP Do you snore loudly (louder Yes 09/14/25 14:11 than talking or can be heard Do you often feel tired/ No 09/14/25 14:11 fatigued/ sleepy during daytime? Has anyone observed you stop No 09/14/25 14:11 breathing during sleep? STOP Results Negative 09/14/25 14:11 QUESTION #5 FULL TEXT : Do you snore loudly (louder than talking or can be heard through closed doors)? 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 Specify any problems Hx of Preganancy in last 3 N/A 09/14/25 14:11 Months Nurse Filling Out Transfusion DSCHRIBER 09/14/25 14:11 & Questions: Date: 09/14/25 09/14/25 14:11 Time: 14:12 09/14/25 14:11 Patient unable to answer at this time (ie. confused, unrespo Any additional information?: No /Reproduction History /Reproductive History - bottom liquor attendant: /Reproductive Hx- bottom liquor attendant Hx Now Gestational Age (in weeks): EDC: Hx Hx Para Hx Section SAB No 09/14/25 14:11 Any additional information?: No Active Medications Active Medications: Current Medications Generic Name Dose Route Start Last Admin Trade Name Freq PRN Reason Stop Dose Admin Cefazolin Sodium 2 gm/ Sodium 110 mls @ 200 mls/hr 09/17/25 13:30 Chloride IV 09/17/25 14:02 INTRAOP ONE Lactated Ringer's 1,000 mls @ 15 mls/hr 09/17/25 12:00 09/17/25 12:21 IV 15 mls/hr .Q48H VICKIE Administration PFSH Medical History Hx of fracture of ankle Wears glasses Depression Former smoker Home Medications ?Medication ?Instructions ?Recorded ?Last Taken ?Type hydrocodone-acetaminophen 5-325mg 1 tab PO Q6H PRN PRN Pain 4 days 08/29/25 09/16/25 Rx 5mg-325mg #12 TABLETS escitalopram oxalate 20 mg tablet 20 mg PO DAILY 08/3009/17/25 History aspirin 81 mg tablet,delayed 81 mg PO DAILY 09/14/25 1 History release Allergy/AdvReac Type Severity Reaction Status Date / Time No Known Allergies Allergy Verified 09/17/25 12:08 Surgical History History of vasectomy Social History Smoking Status: Former smoker Review of Systems (Anesthesia) ROS Narrative System reviewed and no additional complaints, except as documented. Physical Exam Const alert and oriented x3 Orientation / Consciousness: awake HEENT dentition normal Resp normal respiratory effort and normal air movement Cardio regular rate and regular rhythm Neuro oriented x3
[2025-09-17] MEDS: Cefazolin 1 GM/5 ML Vial 2 GM IV (13:38)
[2025-09-17] MEDS: Lactated Ringers 1,000 ML 1000 ML IV (13:38)
[2025-09-17] MEDS: Lidocaine 1% (5 ml sdv) 5 ML Vial IV (13:42)
[2025-09-17] MEDS: PROPOFOL 272.11 MG IV (13:42)
[2025-09-17] MEDS: fentaNYL 100 MCG/2 ML Ampul 50 MCG IV (13:42)
--- NOTE | 2025-09-17 13:48 | RAD_ITS ---
PROCEDURE: ANKLE 2 VIEWS 09/17/2025 REASON FOR EXAM: ORIF RT ANKLE PILON FX TECHNIQUE: Procedure Code: RADANK2 Modality: DX Procedure: ANKLE 2 VIEWS Laterality: Right Fluoroscopy time: 1 minute 48 seconds Total images: 10 COMPARISON: September 17, 2025 FINDINGS: Fluoroscopic spot images were obtained during stabilization of ankle fracture. Initial images show plate and screws fixating the fibula. Alignment is anatomic. Subsequent images show placement of plate and screws across the distal tibia fracture followed by the screw across the medial malleolus. Alignment is anatomic. RAD/Ankle 2 Views IMPRESSION: Fluoroscopic localization and guidance. Correlate with procedural note. Reading Location: [facility]
--- NOTE | 2025-09-17 16:29 | PCM.OPRPT ---
Operative Report (Standard) Operative Information Date of Procedure: 09/17/25 Pre-Operative Diagnosis: Right pilon fracture Post-Operative Diagnosis: Right pilon fracture Surgery/Procedure Performed: Open reduction term fixation right pilon fracture with fibula fracture fixation. Removal of multiplanar external fixator drying room supervisor: Yes Track Car Operator: Lauryn Avelar Tasks completed by first beater: Opening, Closing, Dissecting tissue, Implanting device, Retracting and Other (Traction for fracture reduction. Protection of neurovascular structures.) Additional prosthetic assistant?: Yes Additional Wound Care Specialist #2: Candy Raines Tasks completed by prosthetic assistant #2: Opening and Other (Positioning) Additional prosthetic assistant?: No Type of Anesthesia: General RN Documented Start/Stop Times: Operation Date: 09/17/25 13:30 Case Time Into Pre-Op 09/17/25 11:50 Anesthesia Start 09/17/25 13:37 Into Room 09/17/25 13:37 Out of Pre-Op 09/17/25 13:37 Procedure Start 09/17/25 14:07 Procedure Start Time: 14:07 Procedure Stop Time: 16:32 Select all DRAINS/GRAFTS/IMPLANTS that apply: Implanted device Implanted device details: 1. [place] one third tubular 10 hole Pangia plate 2. Lasha broad 3.5 mm LCDCP 8 hole plate Pangia Special Medications: Ancef 2 g Estimated Blood Loss: 200 mL Fluids Replaced: 2000 mL crystalloid Specimen collected: No Description of surgery: On the date of the procedure patient in the preoperative area we did reaffirm the operative plan as well as risk. Right lower extremity was marked in his preoperative area and the patient was taken back to have blocks for postoperative intraoperative pain control. He was then taken back to the operating room where he was transferred to table in the supine position. Anesthesia assumed controlled C-spine airway and remained controlled throughout the remainder of the procedure. After patient was appropriate anesthetized all bony prominences identified well-padded. Bump was placed underneath the right hip where blankets were placed underneath the right lower extremity and once we are happy with the position of the patient to obtain appropriate intraoperative x-rays we then called a timeout. We agreed upon the side, the site, the to perform, the patient's identity and by skin. At this time the external fixator was disassembled and removed. Once the Ex-Fix was removed tourniquet was placed on the right upper thigh and right lower extremity was prepped in a sterile fashion. Surgeon scrubbed. Upon reentering the room left lower extremity was draped in a standard orthopedic fashion. Timeout was called everyone agreed upon the side, the site, the procedure to be performed, patient's identity and antibiotics given. Lateral bony structures including fibular head and lateral malleolus were marked out and a lateral based incision was marked out. Tourniquet was placed up to 250 mmHg after exsanguinating the leg and incision was taken down through skin. We bluntly dissected down through subtenons tissues in order to identify the superficial peroneal nerve. Superficial peroneal nerve was identified and protected throughout the case. Once this was completed we carefully dissected proximally between the anterior and lateral compartments and distally along the superficial lateral fibula. The fibula fracture was identified and we carefully then dissected over the proximal tibia extraperiosteal he. We did identify the deep peroneal nerve and carefully protected throughout the procedure. Once this was completed we felt that it would be appropriate to reduce the fibula in order to restore length of the tibia. Fibula was reduced using direct visualization once we are happy with the fibula reduction and live x-rays used to verify fracture reduction. 2 lag screws were placed in the comminuted fracture fixing the 3 main fragments together. Once we are happy with this a lateral 10 hole one third tubular plate was selected and 6 bicortical screws were placed. Initially placing 1 screw proximally and 1 screw distally and using x-ray to verify plate placement and fracture reduction. After also screws were placed we then directed our attention to the tibia. In order to appropriately reduce the fracture we did make some medial based protocols greater than 7 cm away from the lateral based incision. Using these medial based protocols and the lateral based incision we were able to place a clamp on the fracture and obtain appropriate fracture reduction. Once we are happy with fracture reduction we placed a lag screw using a medial based focal and protecting the deep peroneal nerve throughout this portion of the procedure. Once we are happy with the lag screw it did stabilize the fracture and we elected to place a lateral based plate. Based on the amount of appropriate bone distally we placed a broad 3.5 mm 8 hole LCDCP Kasenna Pangia plate. Using live x-ray we drilled 1 hole proximally and 1 hole distally after forming the plate to the anterior lateral portion of the tibia. Once the plate was initially fixed live x-rays to verify plate placement and fracture reduction. Once we are happy with this we placed 2 additional screws distally and 2 additional screws proximally. Based on the desire not to place a extra long screw distally due to limited soft tissue coverage we placed a locking screw on the most distal hole. We did have to remove one of the distal screws and placed a smaller screw because it was too long. Live x-rays used to verify final plate placement and screw lengths as well as fracture reduction. Once were happy with this the wound was tania irrigated out with normal saline under low-pressure lavage. We then directed our attention medially. The medial malleolar fragment based on the religious of length and reduced well. Based on this we elected to place a percutaneous compression screw across the vertical fracture. Skin jac was made. Hemostat was used to spread down to bone. K wire was placed under live fluoroscopic guidance and a 4 oh cannulated partially-threaded screw was placed. This had good bone purchase and compressed the fracture well. Live x-ray was then used to verify final plate placement and fracture reduction. Wound was tania irrigate out normal saline. Medial wounds are tania irrigated out normal saline. Medial wounds are closed with 3-0 nylon suture. Lateral fascia was closed with 0 Vicryl with careful attention to the superficial peroneal nerve. Subcutaneous layer was closed with 2-0 Vicryl final skin closure was done with 3-0 nylon sutures. Previous Ex-Fix pin sites were curettaged out with a curette and Xeroform dressing was placed over all wounds. Well-padded dressing was placed with significant amount of ABDs and a eggcrate posteriorly. Posterior splint was placed. Compressive dressing was applied. Patient was awakened anesthesia and transferred to PACU for recovery in stable condition. Postop plan: DVT prophylaxis patient was instructed to take 81 mg aspirin twice daily until follow-up Pain control patient was prescribed oxycodone in the office you will also take Tylenol and schedule Weightbearing status: Patient is nonweightbearing for total of 6 weeks. Begin range of motion at 2-week postop visit placed in boot a 2-week postop visit. My physician prosthetic assistant was vital throughout the case. She was vital in helping protect soft tissues and and protect neurovascular structures throughout the procedure. She was vital in helping provide traction and rotation for reduction of the fracture. She was vital and helping with closure and splinting under my direct supervision. Her knowledge of the anatomy and the procedure helped in safe expedient completion of the procedure for the patient. Surgical Findings: Stable will reduce fracture. Superficial peroneal and deep peroneal nerves were identified and protected throughout the case Complications Complications: No Admit VTE Documentation VTE Present on Admission: No VTE Mechan Device Prophylaxis: SCD's and Thigh High JACQUELIN Hose VTE Pharm Prophylaxis ordered?: Yes
--- NOTE | 2025-09-17 17:10 | RAD_ITS ---
PROCEDURE: RIGHT ANKLE MIN 3 VIEWS 09/17/2025 REASON FOR EXAM: FRACTURE TECHNIQUE: Procedure Code: RADANK Modality: DX Procedure: ANKLE MIN 3 VIEWS Laterality: Right COMPARISON: 09/10/2025. FINDINGS: Redemonstrated comminuted fractures of the distal tibia and fibula, status post ORIF with lateral plate and screw fixation with several interfragmentary screws. No evidence for hardware loosening or failure. Fracture fragments appear well approximated with anatomic alignment. Congruent ankle mortise. Generalized soft tissue swelling about the ankle. Overlying splint material. RAD/Ankle min 3 Views IMPRESSION: ORIF of the right ankle for previously described comminuted fractures of the di stal tibia and fibula, with intact hardware and stable alignment. Reading Location: [id number]
--- NOTE | 2025-09-17 17:58 | PCM.POST.ANE ---
Anesthesia: Postop Eval I Current Vital Signs Temperature: 96.8 F Pulse Rate: 80 Blood Pressure: 150/100 Respiratory Rate: 18 Pulse Ox: 99 Oxygen Delivery Method: Room Air Assessment Airway patent: Yes Spontaneous unlabored respirations: Yes Mental status: Asleep nausea: No Vomiting: No Anesthesia Complication: No Fluid Hydration Crystalloid volume administer (ml): 2,000 Total IV fluid infused: 2,000 Progress Note Anesthesia document: Postop Eval 1 completed: Yes
--- NOTE | 2025-09-17 21:06 | POSTOPAN2_ITS ---
Anesthesia Postop Eval I Sum Postop Eval Completion status Anesthesia document: Postop Eval 1 completed: Yes Anesthesia Postop Eval I Summary Anesthesia Postop Eval I Summary: Anesthesia Postop Eval I: Assessment Summary Airway patent Yes 09/17/25 17:59 LIQUOR GRINDING MILL OPERATOR.[email or web address] Spontaneous unlabored Yes 09/17/25 17:59 LIQUOR GRINDING MILL OPERATOR.CSIR respirations Mental status Asleep 09/17/25 17:59 LIQUOR GRINDING MILL OPERATOR.CSIR nausea No 09/17/25 17:59 LIQUOR GRINDING MILL OPERATOR.CSIR Vomiting No 09/17/25 17:59 LIQUOR GRINDING MILL OPERATOR.CSIR Anesthesia Postop Eval I: Fluid Summary Crystalloid volume administer 2,000 09/17/25 17:59 LIQUOR GRINDING MILL OPERATOR.CSIR (ml) Colloids volume administered ( ml) Blood Product volume administered (ml) Total IV fluid infused 2,000 09/17/25 17:59 LIQUOR GRINDING MILL OPERATOR.CSIR Anesthesia Postop Eval I: Summary Notes Anesthesia Complication No 09/17/25 17:59 LIQUOR GRINDING MILL OPERATOR.CSIR Anesthesia Complication Comment: Post-operative progress note Anesthesia: Postop Eval II Evaluation Mental status: Awake and Calm Pain Level: 2 nausea: No Vomiting: No Complications Anesthesia Complication: No
--- NOTE | 2025-09-17 21:06 | PCM.POSTANE2 ---
Anesthesia Postop Eval I Sum Postop Eval Completion status Anesthesia document: Postop Eval 1 completed: Yes Anesthesia Postop Eval I Summary Anesthesia Postop Eval I Summary: Anesthesia Postop Eval I: Assessment Summary Airway patent Yes 09/17/25 17:59 INSTRUMENT ROOM TECHNICIAN.CSIR Spontaneous unlabored Yes 09/17/25 17:59 INSTRUMENT ROOM TECHNICIAN.CSIR respirations Mental status Asleep 09/17/25 17:59 INSTRUMENT ROOM TECHNICIAN.CSIR nausea No 09/17/25 17:59 INSTRUMENT ROOM TECHNICIAN.CSIR Vomiting No 09/17/25 17:59 INSTRUMENT ROOM TECHNICIAN.CSIR Anesthesia Postop Eval I: Fluid Summary Crystalloid volume administer 2,000 09/17/25 17:59 INSTRUMENT ROOM TECHNICIAN.CSIR (ml) Colloids volume administered ( ml) Blood Product volume administered (ml) Total IV fluid infused 2,000 09/17/25 17:59 INSTRUMENT ROOM TECHNICIAN.CSIR Anesthesia Postop Eval I: Summary Notes Anesthesia Complication No 09/17/25 17:59 INSTRUMENT ROOM TECHNICIAN.CSIR Anesthesia Complication Comment: Post-operative progress note Anesthesia: Postop Eval II Evaluation Mental status: Awake and Calm Pain Level: 2 nausea: No Vomiting: No Complications Anesthesia Complication: No
== END 2025-09-17 19:25 | disposition home or self-care (01) ==
LOC: SDC 11:44 → AC 11:45
PROVIDERS: PCP Family Medicine; Referring Provider Specialist; Visit Provider Specialist
PROC: (CPT 27828; principal; 2025-09-17 13:10)
DX: S82.871A Displaced pilon fracture of right tibia, initial encounter for closed fracture (principal); S82.401A Unspecified fracture of shaft of right fibula, initial encounter for closed fracture; R03.0 Elevated blood-pressure reading, without diagnosis of hypertension; X58.XXXA Exposure to other specified factors, initial encounter
CPT/HCPCS: 27828; 64447; 64450; 73600; 73610; 76000; C1713; J2405

== ENCOUNTER 2025-09-18 10:46 | Emergency (ER) | payer OTHER, SELFPAY ==
[2025-09-18 10:46] VITALS: BP 121/90; PULSE 105; RESP 18; TEMP 37.1; O2SAT 98
[2025-09-18 10:51] VITALS: BP 149/96; PULSE 88; RESP 19; TEMP 37.1; O2SAT 98; BMI 31.0
--- NOTE | 2025-09-18 10:57 | ED.VIS.LOWEX ---
HPI History of Present Illness Chief Complaint: Lower Extremity Injury Detail of Chief Complaint: Right leg pain Informant: patient Narrative Narrative: Patient presents with right leg pain that started yesterday after surgery. Patient states that he broke his leg 3 to 4 weeks ago and had surgery yesterday with Dr. Land. Having severe pain despite taking oxycodone at home. Patient called the surgeons office but apparently surgeon was in the operating room and was instructed come to the emergency department. He denies fevers. He had some chills when he got home from surgery last night. PFSH PFSH Medical History Hx of fracture of ankle Wears glasses Depression Former smoker Home Medications ?Medication ?Instructions ?Recorded ?Last Taken ?Type escitalopram oxalate 20 mg tablet 20 mg PO DAILY 08/30/25 09/17/25 History aspirin 81 mg tablet,delayed 81 mg PO DAILY 09/14/25 09/17/25 History release morphine 15 mg tablet,extended 15 mg PO Q12H 5 days #10 tabs 09/18/25 Unknown Rx release (MS Contin) oxycodone 5 mg tablet 5 - 10 mg PO Q4H PRN PRN pain 09/18/25 Unknown History Allergy/AdvReac Type Severity Reaction Status Date / Time No Known Allergies Allergy Verified 09/18/25 10:46 Surgical History History of vasectomy Social History Smoking Status: Former smoker ROS ROS ED Review of Systems ROS Unobtainable: other Constitutional Constitutional ED: Reports lethargy; Denies chills, fever(s), sweats or weight loss Eyes Eyes: Denies blurry vision, change in vision or diplopia ENT ENT ED: Denies rhinorrhea or sore throat Cardiovascular Cardiovascular: Denies chest pain, orthopnea or racing heartbeat Respiratory/Chest Respiratory/Chest: Denies cough, dyspnea, dyspnea on exertion, orthopnea or sputum Gastrointestinal Gastrointestinal: Denies abdominal pain, diarrhea, nausea or vomiting Genitourinary Genitourinary ED: Denies dysuria, hematuria or urinary frequency Musculoskeletal Musculoskeletal: Reports other Details: Right leg pain ; Denies arthralgias, back pain, myalgias or neck pain Integumentary Denies abscess, Abrasions or rash Neurologic Neurologic: Denies headache(s) or weakness Psychiatric Psychiatric: Denies anxiety, depression or suicidal thoughts Endocrine Endocrinology: Denies polydipsia, polyphagia or polyuria Hematologic/Lymphatic Hematologic/Lymphatic: Denies easy bleeding, easy bruising or lymphadenopathy Allergic/Immunologic Allergic/Immunologic ED: Denies mouth swelling, tongue swelling or urticaria EXAM Physical Exam Const Vital Signs: 09/18/25 10:46 09/18/25 10:51 Temperature 98.7 F 98.7 F Temperature Source Oral Oral Pulse Rate 105 H 88 Respiratory Rate 18 19 H Blood Pressure 121/90 H 149/96 H Blood Pressure Mean 100 113 Pulse Ox 98 98 Oxygen Delivery Method Room Air Room Air Positive well nourished and well developed General Appearance ED: well developed and NAD HEENT Reports TM's clear and moist mucous membranes normocephalic and atraumatic; Negative for trauma or tenderness Tympanic Membrane ED: Yes TM's clear Eyes PERRL and EOMs intact bilaterally General Eye ED: Negative for pale conjunctiva or scleral icterus Neck no lymphadenopathy, supple and no JVD General: Negative for tenderness Chest Wall inspection of chest normal and palpation of chest normal Chest: Negative for tenderness Resp normal respiratory effort and clear to auscultation bilaterally Effort and Inspection: Negative for respiratory distress or pain with movement Auscultation: Negative for rhonchi, wheezes or diminished lung sounds Cardio regular rate, regular rhythm, S1 normal heart sound, S2 normal heart sound and no murmurs Peripheral Pulses: pulses 2+ throughout GI normal to inspection, nondistended, normoactive bowel sounds, soft to palpation, non-tender, non-distended and no masses Back/Spine no CVA tenderness and no thoracic nor lumbar tenderness Extremity Extremity Narrative: Right leg-patient presents with lower leg in a posterior splint. I did take down the dressings in the splint to evaluate the wounds and the lower extremity. He has normal cap refill. Compartments are soft. He is able to move his toes. No significant erythema noted. No drainage noted from the wounds. General Extremety ED: Negative for edema General Extremity: Negative for edema Neuro oriented x3, CN's II-XII intact bilaterally, no sensory deficits noted and gait normal Sensorium / Orientation: awake, alert, oriented to person, oriented to place and oriented to time Motor Exam: strength 5/5 throughout and strength abnormal Psych mental status grossly normal Skin no rashes or lesions noted and no wounds MDM MDM MDM Narrative Medical decision making narrative: Will treat patient with Dilaudid for pain and will discuss case with patient's surgeon. Discussed case with patient's surgeon Dr. Land who recommends started patient on MS Contin twice daily for 5 days as well. We discussed compartments all being soft and good cap refill good range of motion. Will reapply patient's splint. Advised him to keep his appointment with his surgeon as advised. Discharge Plan Triage Chief Complaint: Lower Extremity Injury ED Provider: Ruslan Britt Dx/Rx/DC Orders Clinical Impression: Post-op pain Instructions: Managing Post-Op Pain at Home Prescriptions: New morphine [MS Contin] 15 mg tablet extended release 15 mg PO Q12H 5 Days Qty: 10 0RF No Action escitalopram oxalate 20 mg tablet 20 mg PO DAILY oxycodone 5 mg tablet 5 - 10 mg PO Q4H PRN PRN (Reason: pain) aspirin 81 mg tablet,delayed release (DR/EC) 81 mg PO DAILY Primary Care Provider: Bruna Morgan Referrals: Bruna Morgan MD [Primary Care Provider, Family Practice] Gabriel Land MD [Med Staff - Active Staff, Orthopedics] - Keep Macario appointment Print Language: Kyrgyz Disposition Disposition: Home, Self Care
[2025-09-18 11:57] VITALS: BP 149/96; PULSE 88; RESP 19; TEMP 37.1; O2SAT 98
== END 2025-09-18 11:58 | disposition home or self-care (01) ==
PROVIDERS: Emergency Provider Emergency Medicine; PCP Family Medicine; Visit Provider Emergency Medicine
DX: G89.18 Other acute postprocedural pain (principal); Z87.891 Personal history of nicotine dependence; F32.A Depression, unspecified; Z79.899 Other long term (current) drug therapy; Z98.52 Vasectomy status
CPT/HCPCS: 96372; 99282